=== PATIENT | female | born 1980 | race Caucasian/White ===

== ENCOUNTER 2019-09-02 16:34 | Emergency (ER) | payer OTHER ==
[~2019-09-02] VITALS: Ht 154.9 cm; Wt 52.2 kg
[2019-09-02 16:43] VITALS: Ht 154.9 cm; Wt 52.2 kg
[2019-09-02 17:25] LABS: BASOPHIL % 0.9 % (0-2); PLATELET COUNT 222 x10^3mcL (130-400); RED CELL DISTRIBUTION WIDTH 14.8 % (11.5-14.5)
[2019-09-02 17:29] LABS: CARBON DIOXIDE 23.6 mmol/L (21-32); CHLORIDE SERUM 99 mmol/L (98-107); CREATININE SERUM 0.8 mg/dL (0.6-1.0); GFR1 > 60 mL/min; GLUCOSE SERUM 136 mg/dL (74-106); POTASSIUM SERUM 3.7 mmol/L (3.5-5.1); SODIUM SERUM 136 mmol/L (136-145)
[2019-09-02 17:33] LABS: ALBUMIN 3.8 g/dL (3.4-5.0); ALKALINE PHOSPHATASE 41 U/L (46-116); ALT/SGPT 42 U/L (14-59); AST/SGOT 39 U/L (15-37); BILIRUBIN TOTAL 0.3 mg/dL (0.20-1.00); MAGNESIUM 1.7 mg/dL (1.8-2.4); TOTAL PROTEIN, SERUM 7.1 g/dL (6.4-8.2)
[2019-09-02 17:49] LABS: microscopic required? NO; urine erythrocyte NEGATIVE (NEGATIVE)
[2019-09-02 18:17] LABS: AMPHETAMINE QUAL UR NONE DETECTED (See below)
[2019-09-02 18:57] VITALS: BP 117/84
== END 2019-09-02 18:57 | disposition home or self-care (01) ==
LOC: ED 16:34
PROVIDERS: Emergency Medicine
DX: R55 Syncope and collapse (principal)
CPT/HCPCS: 36415; Q0092